=== PATIENT | male | born 1990 | race Caucasian/White ===

== ENCOUNTER 2016-08-05 16:14 | Emergency (ER) | payer SELFPAY ==
--- NOTE | 2016-08-09 18:07 | NUR ---
Pt. called Social Work office on 08/07/16 looking for assist with purchase of his Z salo that was prescribed for him in the ER. Pt. states lives at [facility] and unable to pay for any meds at this time. Pt. states he is working with counselor at [place] to find access to healthcare, such as [facility] or [facility] when asked his plan for follow up care. His medication was purchased through [facility] at [address]
--- NOTE | 2016-09-05 21:14 | ER ---
ADMIT: 08/05/2016 RM/LOC: ER [facility] MR#: [id number] [id number] [address] [place] [address] Emergency Room Report SEX: M AGE: 25 : 1990 DATE: 08/05/2016 HISTORY OF PRESENT ILLNESS: The patient is a 25-year-old, young man, who presents to the emergency room with a cough and sore throat for about 2 weeks now. He says that when he gets in a coughing spell situation, he even wants to throw up. He had fever, sore throat, hoarseness, headache. REVIEW OF SYSTEMS: Negative. PAST MEDICAL HISTORY: Essentially negative as well. He has had a cyst removed. MEDICATIONS: He takes Zoloft and [id number] cough medication. 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 He is on the [employer] and requests not to have any medication that can upset his status at this time. PHYSICAL EXAMINATION: VITAL SIGNS: Blood pressure 160/72, respirations 18, temp is 98.5, O2 sats 95%. GENERAL: Very pleasant. Alert and oriented male. HEENT: Pharynx is clear. He does have some hoarse voice. NECK: Supple. No adenopathy or thyromegaly. LUNGS: He does have wheezes in the upper and lower aspect of his lung in the right side. ABDOMEN: Nontender. CVS: Regular in rate and rhythm. SKIN: Good color and turgor. EXTREMITIES: Nontender. NEURO: Oriented x4. CLINICAL IMPRESSION: Bronchitis, acute, with laryngitis. Given a prescription for albuterol and Z-Josue. Given a nebulizer treatment which did help on the bed. A note given for his court probation and antibiotics for him to start as soon as he can. RIO Hull / Dong Garcia MD / heather JOB #: [id number] CC: Dong Garcia MD, Attending Physician UNKNOWN, Family Physician
== END 2016-08-05 18:05 | disposition home or self-care (01) ==
LOC: ER 16:14
DX: J20.9 Acute bronchitis, unspecified (principal); J04.0 Acute laryngitis; F17.210 Nicotine dependence, cigarettes, uncomplicated; Z79.899 Other long term (current) drug therapy